=== PATIENT | male | born 1965 | race Two or more races ===

== ENCOUNTER 2018-12-28 14:27 | Outpatient (CLI) | payer MEDICAID ==
[~2018-12-28] VITALS: Ht 165.1 cm; Wt 74.4 kg
[2018-12-28] MEDS ORDERED: BP MED (15:48)
[2018-12-28 15:50] VITALS: BP 152/95
--- NOTE | 2018-12-28 20:15 | Consultation ---
DATE OF CONSULTATION: 12/28/2018 CONSULTING PHYSICIAN: Gregorio Gutierrez M.D. CHIEF COMPLAINT: Screening colonoscopy evaluation. PAST MEDICAL HISTORY: Hypertension. PAST SURGICAL HISTORY: Leg and back surgery. MEDICATIONS: He takes for hypertension, he does not have it. FAMILY HISTORY: No family history of GI malignancies. SOCIAL HISTORY: The patient smokes, but no drinks. No IV drugs. Uses coke. ALLERGIES: No known drug allergies. PHYSICAL EXAMINATION: VITAL SIGNS: Temperature 97, blood pressure is 150/95, pulse is 70. HEENT: Normocephalic and atraumatic. Sclerae anicteric. NECK: Supple. There is no evidence of lymphadenopathy. CARDIOVASCULAR: Regular rate and rhythm. Plus S1 and S2. No obvious murmur. LUNGS: Clear to auscultation bilaterally. ABDOMEN: Positive bowel sounds. Soft, nontender. No rebound. No guarding. No peritoneal sign. EXTREMITIES: No cyanosis, no clubbing, no edema. ASSESSMENT AND PLAN: This is a 53-year-old male felt to be otherwise with only high blood pressure, needs screening colonoscopy. Procedure was described to the patient in presence of his daughter who speaks Kinyarwanda. The patient agreed to it. Instruction for colonoscopy and prep was given. The patient to follow as an outpatient when authorized . The patient to be scheduled for colonoscopy when authorized by insurance. Gregorio Gutierrez M.D. DR: Delia JOB#: [id number] CC:
== END 2018-12-28 16:13 | disposition home or self-care (01) ==
LOC: PAN 14:27
DX: Z01.818 Encounter for other preprocedural examination (principal); I10 Essential (primary) hypertension; F17.200 Nicotine dependence, unspecified, uncomplicated